=== PATIENT | male | born 1965 | race Two or more races ===

== ENCOUNTER → 2016-08-15 | Outpatient (CLI) | payer BC ==
--- NOTE | 2016-08-15 15:06 | RAD ---
Scrotal ultrasound, 08/15/2016: History: Scrotal mass. The right testicle measures 4.5 x 3.2 x 2.1 cm while the left testicle measures 4.3 x 3.7 x 2.4 cm. No testicular mass is seen. There is blood flow within both testicles. There is a large left hydrocele. This fluid contains a small amount of echogenic debris. There are small bilateral varicoceles. There is a cluster of 2 small cysts in the right epididymis. This process measures 1.3 cm in greatest diameter. Several tiny cysts are noted in the left epididymis. IMPRESSION: 1. No testicular abnormality is detected. 2. Large left hydrocele. 3. Small epididymal cysts, right larger than left. 4. Small bilateral hydroceles.
== END | disposition home or self-care (01) ==
LOC: US 10:14
PROVIDERS: ATTEND Family Medicine
DX: N43.2 Other hydrocele (principal); N50.3 Cyst of epididymis; N50.9 Disorder of male genital organs, unspecified
CPT/HCPCS: 76870